=== PATIENT | male | born 1970 | race Caucasian/White ===

== ENCOUNTER 2017-07-31 03:05 | Emergency (ER) | payer BC ==
[2017-07-31] MEDS ORDERED: ONDANSETRON HCL INJ/PF 4 MG/2 ML SDV ONE (03:56)
[2017-07-31] MEDS ORDERED: NORMAL SALINE 1000 ML 1,000 ML IV ONE ×2 (04:00)
[2017-07-31] MEDS ORDERED: ONDANSETRON HCL INJ/PF 4 MG/2 ML SDV IV ONE (04:00)
[2017-07-31] MEDS ORDERED: LORAZEPAM INJ 2 MG/1 ML VIAL IV ONE (04:00)
[2017-07-31] MEDS ORDERED: FAMOTIDINE 20 MG TABLET PO ONE (04:01)
[2017-07-31] MEDS ORDERED: SUCRALFATE 1 GM TABLET PO ONE (04:01)
--- NOTE | 2017-07-31 04:02 | ER Document Report ---
ED GI/ - General Chief Complaint: Vomiting Stated Complaint: VOMITING Time Seen by Provider: 07/31/17 03:54 Notes: Patient is a 47-year-old male who comes emergency department for chief complaint of vomiting. He states he has been vomiting for 3 days, his is also vomiting, however he states that about 4 times a year he starts vomiting and needs to come to the hospital for IV rehydration. He denies chest pain or shortness of breath. He states he is supposed to be on medication for Rowley' s esophagus but he is not currently taking anything. He does smoke, he does drink, he denies recreational drugs. He denies any surgeries or medical problems otherwise. - Related Data Allergies/Adverse Reactions: PRATIBHA Inhibitors Allergy (Verified 07/31/17 03:08) fluconazole [From Diflucan] Allergy (Verified 07/31/17 03:08) Past Medical History - General Information source: Patient - Social History Smoking Status: Current Every Day Smoker Smoking Education Provided: Yes - <3 min Frequency of alcohol use: Heavy Drug Abuse: None Lives with: Spouse/Significant other Family History: Reviewed & Not Pertinent GI Medical History: Reports: Hx Gastritis, Hx Gastroesophageal Reflux Disease - Immunizations Hx Diphtheria, Pertussis, Tetanus Vaccination: Yes Review of Systems - Review of Systems Constitutional: See HPI EENT: No symptoms reported Cardiovascular: No symptoms reported Respiratory: No symptoms reported Gastrointestinal: See HPI Genitourinary: No symptoms reported Male Genitourinary: No symptoms reported Musculoskeletal: No symptoms reported Skin: No symptoms reported Hematologic/Lymphatic: No symptoms reported Neurological/Psychological: No symptoms reported Physical Exam - Vital signs Vitals: Temp Pulse Resp BP Pulse Ox 98.1 F 119 H 18 138/98 H 99 07/31/17 03:18 07/31/17 03:18 07/31/17 03:18 07/31/17 03:18 07/31/17 03:18 Interpretation: Normal - General General appearance: Appears well In distress: None - HEENT Head: Normocephalic, Atraumatic Eyes: Normal Pupils: PERRL - Respiratory Respiratory status: No respiratory distress Chest status: Nontender Breath sounds: Normal Chest palpation: Normal - Cardiovascular Rhythm: Regular, Tachycardia Heart sounds: Normal auscultation, S1 appreciated, S2 appreciated Murmur: No Normal capillary refill: Yes - Abdominal Inspection: Normal Distension: No distension Bowel sounds: Normal Tenderness: Tender - Very mild generalized upper abdominal tenderness, nonspecific, no guarding Organomegaly: No organomegaly - Back Back: Normal, Nontender - Extremities General upper extremity: Normal inspection, Nontender, Normal color, Normal ROM , Normal temperature General lower extremity: Normal inspection, Nontender, Normal color, Normal ROM , Normal temperature, Normal weight bearing. No: Rafaela's sign - Neurological Neuro grossly intact: Yes Cognition: Normal Orientation: AAOx4 [place] Coma Scale Eye Opening: Spontaneous [place] Coma Scale Verbal: Oriented [place]is[place] Coma Scale Motor: Obeys Commands [place] Coma Scale Total: 15 Speech: Normal Motor strength normal: LUE, RUE, LLE, RLE Sensory: Normal - Psychological Associated symptoms: Normal affect, Normal mood - Skin Skin Temperature: Warm Skin Moisture: Dry Skin Color: Te Course - Re-evaluation Re-evalutation: CBC shows macrocytic cells but otherwise unremarkable, chemistry shows hypokalemia, generally unremarkable otherwise. Lipase not elevated. Urinalysis nonspecific. Does show some hematuria back patient has no flank pain , no history of kidney stones, he only has upper abdominal discomfort with nausea. After Carafate, Pepcid, IV fluids, nausea medication, patient asymptomatic. Tachycardia resolved on my exam. Discussed with patient. He states that he admits he has an alcohol problem, he drinks regularly actually daily, states he does have withdrawal symptoms. He is uninterested in detox at this time although this was discussed. After discussion he states he will consider it but wants to do it outpatient on his own. He states he is ready to go home, as for medications for his symptoms, states understanding of return precautions. Based on patient's examination, presentation, low suspicion of acute abdomen, ACS, and patient is alert and appears to have good understanding of his situation. Discharged with return precautions. - Vital Signs Vital signs: Temp Pulse Resp BP Pulse Ox 98.1 F 101 H 18 157/99 H 98 07/31/17 03:18 07/31/17 05:50 07/31/17 05:50 07/31/17 05:50 07/31/17 05:50 - Laboratory Result Diagrams: 07/31/17 04:10 07/31/17 04:10 Laboratory results interpreted by me: 07/31/17 07/31/17 07/31/17 04:10 04:10 04:10 RBC 4.34 L MCV 99 H MCH 33.5 H RDW 25.0 H Potassium 3.1 L Chloride 91 L Carbon Dioxide 32 H AST 88 H Urine Protein 30 H Urine Urobilinogen 4.0 H Discharge - Discharge Clinical Impression: Dehydration, Alcohol abuse, Hypokalemia Vomiting Qualifiers: Vomiting type: unspecified Vomiting Intractability: non-intractable Nausea presence: with nausea Qualified Code(s): R11.2 - Nausea with vomiting, unspecified Condition: Stable Disposition: HOME, SELF-CARE Additional Instructions: Your examination is consistent with gastritis and dehydration. Take medications for gastritis, take Phenergan if needed for nausea. Stop smoking, follow-up and enter formal detox as discussed. If you continue to smoke, drink, and have recurrent episodes like this your Rowley's esophagus can worsen, you can have gastrointestinal bleeding, and develop liver or esophageal cancer in addition to other life-threatening abnormalities. Return if you worsen including vomiting that is not controlled, vomiting blood, uncontrollable shaking, fever, severe abdominal pain, or any other concerning or worsening symptoms. Prescriptions: Famotidine [Pepcid 20 mg Tablet] 20 mg PO BID #20 tablet Ondansetron [Zofran Odt 4 mg Tablet] 1 - 2 tab PO Q4H PRN #15 tab.rapdis PRN Reason: For Nausea/Vomiting Sucralfate [Carafate 1 gm Tablet] 1 gm PO QID #40 tablet
[2017-07-31 04:35] LABS: HEMOGLOBIN 14.6 g/dL (13.5-17.0); MEAN CORPUSCULAR HEMOGLOBIN 33.5 pg (27.0-33.4); MEAN CORPUSCULAR HGB CONC 33.9 g/dL (32.0-36.0); MEAN CORPUSCULAR VOLUME 99 fl (80-97); PLATELET COUNT 218 10^3/uL (150-450); RED BLOOD COUNT 4.34 10^6/uL (4.35-5.55); WHITE BLOOD COUNT 6.7 10^3/uL (4.0-10.5)
[2017-07-31 04:39] LABS: ALANINE AMINOTRANSFERASE 56 U/L (21-72); ALBUMIN 4.6 g/dL (3.5-5.0); ALKALINE PHOSPHATASE 118 U/L (38-126); ANION GAP 16 (5-19); ASPARTATE AMINO TRANSFERASE 88 U/L (17-59); BILIRUBIN,DIRECT 0.4 mg/dL (0.0-0.4); BILIRUBIN,TOTAL 1.2 mg/dL (0.2-1.3); BLOOD UREA NITROGEN 7 mg/dL (7-20); CALCIUM 10.2 mg/dL (8.4-10.2); CARBON DIOXIDE 32 mmol/L (22-30); CHLORIDE 91 mmol/L (98-107); GLUCOSE 108 mg/dL (75-110); LIPASE 287.6 U/L (23-300); POTASSIUM 3.1 mmol/L (3.6-5.0); SODIUM 138.6 mmol/L (137-145); TOTAL PROTEIN 7.6 g/dL (6.3-8.2)
[2017-07-31 04:44] LABS: APPEARANCE,URINE SLIGHTLY-CLOUDY; BILIRUBIN,URINE NEGATIVE (NEGATIVE); COLOR,URINE AMBER; GLUCOSE, URINE NEGATIVE (NEGATIVE); KETONES,URINE NEGATIVE (NEGATIVE); LEUKOCYTE ESTERASE,URINE NEGATIVE (NEGATIVE); NITRITE,URINE NEGATIVE (NEGATIVE); PROTEIN,URINE 30 mg/dL (NEGATIVE); URINE SPECIFIC GRAVITY 1.021
[2017-07-31 05:12] LABS: ABSOLUTE LYMPHOCYTES# (MANUAL) 1.6 10^3/uL (0.5-4.7); ABSOLUTE MONOCYTES # (MANUAL) 0.4 10^3/uL (0.1-1.4); ABSOLUTE NEUTROPHILS# (MANUAL) 4.7 10^3/uL (1.7-8.2); BASOPHILS % (MANUAL) 0 % (0-2); EOSINOPHILS % (MANUAL) 0 % (0-6); LYMPHOCYTES % (MANUAL) 24 % (13-45); MONOCYTES % (MANUAL) 6 % (3-13); SEGMENTED NEUTROPHILS % (MAN) 70 % (42-78); TOTAL CELLS COUNTED 100
[2017-07-31 05:13] LABS: TOXIC GRANULATION 1+
[2017-07-31 05:14] LABS: ANISOCYTOSIS 3+; PLATELET COMMENT ADEQUATE; PLATELET LARGE PRESENT; POIKILOCYTOSIS SLIGHT; SCHISTOCYTES SLIGHT; TEAR DROP CELLS 1+
[2017-07-31] MEDS ORDERED: LORAZEPAM 1 MG TABLET PO ONE (05:32)
[2017-07-31] MEDS ORDERED: POTASSIUM CHLORIDE 10 MEQ TABLET.SA PO ONE (05:32)
[2017-07-31 05:51] VITALS: BP 157/99
== END 2017-07-31 05:51 | disposition home or self-care (01) ==
LOC: ER 03:05
DX: E86.0 Dehydration (principal); R11.2 Nausea with vomiting, unspecified; E87.6 Hypokalemia; F10.10 Alcohol abuse, uncomplicated; R10.84 Generalized abdominal pain; F17.200 Nicotine dependence, unspecified, uncomplicated
CPT/HCPCS: 99283; 96361; 96374; 96375; 36415; 83690; 85025; 80053; 81001; J2060; J2405; J7030